=== PATIENT | male | born 1960 | race Two or more races ===

== ENCOUNTER 2017-09-05 08:38 | Emergency (ER) | payer MEDICARE, MEDICAID ==
[2017-09-05 08:46] VITALS: BP 108/71
--- NOTE | 2017-09-05 09:00 | EDM.PDOC ---
ED HPI GENERAL MEDICAL PROBLEM - General Chief Complaint: Respiratory Problem Stated Complaint: SHORTNESS OF BREATH Time Seen by Provider: 09/05/17 08:54 Source of Information: Reports: Patient History Limitations: Reports: No Limitations - History of Present Illness Onset: Gradual Onset Date: 09/02/17 Duration: Getting Worse Location: Reports: Chest, Other (Lungs with shortness of breath and cough.) Severity: Mild Improves with: Reports: None, Other (Patient has tried medication which has not worked.) Worsens with: Reports: None Context: Reports: Activity Associated Symptoms: Reports: Cough, cough w sputum, Fever/Chills, Shortness of Breath, Other (Muscle and body aches with joint pain.). 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 [No Known Home Meds] 04/08/16 [History] Past Medical History - Past Health History Medical/Surgical History: Denies Medical/Surgical History Social & Family History - Tobacco Use Smoking Status *Q: Current Every Day Smoker Years of Tobacco use: 30 Packs/Tins Daily: 1 - Recreational Drug Use Recreational Drug Use: No ED ROS GENERAL - Review of Systems Review Of Systems: ROS reveals no pertinent complaints other than HPI. Constitutional: Reports: Weakness. Denies: Fever, Chills HEENT: Reports: Sinus Problem. Denies: Ear Pain, Eye Pain, Throat Pain, Vision Change Respiratory: Reports: Shortness of Breath, Cough, Sputum Cardiovascular: Reports: No Symptoms Endocrine: Reports: No Symptoms GI/Abdominal: Reports: No Symptoms. Denies: Constipation, Diarrhea, Nausea, Vomiting : Reports: No Symptoms Musculoskeletal: Reports: Joint Pain, Muscle Pain. Denies: Joint Swelling Skin: Reports: No Symptoms. Denies: Rash Neurological: Denies: Confusion, Dizziness, Headache Psychiatric: Reports: No Symptoms ED EXAM, GENERAL - Physical Exam Exam: See Below Exam Limited By: No Limitations General Appearance: Alert, No Apparent Distress Ears: Normal External Exam, Normal Canal, Normal TMs Ear Exam: Bilateral Ear: Auricle Normal, Canal Normal, TM normal Nose: Nasal Drainage, Other (Erythema of bilateral nare.). No: Nasal Deformity , Nasal Swelling Throat/Mouth: Normal Inspection, Normal Oropharynx, Normal Voice, No Airway Compromise. No: Inflammation Head: Atraumatic, Normocephalic, Sinus Tenderness, Other (Tenderness with palpation over bilateral maxillary sinuses.) Neck: Non-Tender, Full Range of Motion, Lymphadenopathy (L), Lymphadenopathy (R) Respiratory/Chest: No Respiratory Distress, Normal Breath Sounds, No Accessory Muscle Use, Crackles. No: Rales (He does have some crackles in his left upper lung.), Rhonchi, Wheezing Cardiovascular: Normal Peripheral Pulses, Regular Rate, Rhythm, No Edema, No JVD , No Murmur Peripheral Pulses: 2+: Radial (L), Radial (R) GI/Abdominal: Normal Bowel Sounds, Soft, Non-Tender, No Organomegaly, No Distention Extremities: Normal Inspection, Normal Range of Motion, Non-Tender Neurological: Alert, Oriented, CN II-XII Intact, Normal Gait Psychiatric: Normal Affect, Normal Mood Skin Exam: Warm, Dry, Intact, No Rash Course - Vital Signs Last Recorded V/S: Last Vital Signs Temp 36.6 C 09/05/17 08:43 Pulse 106 H 09/05/17 08:43 Resp 18 09/05/17 08:43 BP 108/71 09/05/17 08:43 Pulse Ox 96 09/05/17 08:43 Departure - Departure Time of Disposition: 09:40 Disposition: Home, Self-Care 01 Condition: Good Clinical Impression: Acute bronchiolitis Qualifiers: Bronchiolitis organism: unspecified organism Qualified Code(s): J21.9 - Acute bronchiolitis, unspecified - Discharge Information Instructions: Shortness of Breath, [id number], Acute Bronchitis, [id number] Additional Instructions: Patient is being discharged home with Cefdinir 300 mg twice a day 10 days. He is also instructed to follow-up in the clinic if symptoms worsen or do not get better
[2017-09-05 09:35] LABS: CHLORIDE,CL 101 mmol/L (98-107); SODIUM,NA 136 mmol/L (136-145)
[2017-09-05] MEDS ORDERED: cefTRIAXone 1 GM Vial IM ONE (09:56)
== END 2017-09-05 10:10 | disposition home or self-care (01) ==
LOC: VM.ED 08:38
DX: J21.9 Acute bronchiolitis, unspecified (principal); F17.210 Nicotine dependence, cigarettes, uncomplicated
CPT/HCPCS: 36415; 71020; 80053; 85025; 96372; 99285; J0696; 99283-GF

== ENCOUNTER 2017-11-18 04:46 | Emergency (ER) | payer MEDICARE, MEDICAID ==
[2017-11-18 04:49] VITALS: BP 158/79
[2017-11-18] MEDS ORDERED: methylPREDNISolone Sodium Succinate 125 MG/2 ML SDV IM ONE (04:50)
[2017-11-18] MEDS ORDERED: Sodium Chloride 0.9% 10 ML Syringe FLUSH PRN (04:50)
[2017-11-18] MEDS ORDERED: Ketorolac 30 MG/ML SDV IVPUSH ONE (04:51)
[2017-11-18] MEDS ORDERED: methylPREDNISolone Sodium Succinate 125 MG/2 ML SDV IVPUSH ONE (05:21)
[2017-11-18 06:24] LABS: CHLORIDE,CL 103 mmol/L (98-107); SODIUM,NA 141 mmol/L (136-145)
[2017-11-18] MEDS ORDERED: Iopamidol 612 MG/ML 100 ML Bottle IVPUSH ONE (06:58)
--- NOTE | 2017-11-18 09:15 | EDM.PDOC ---
ED HPI GENERAL MEDICAL PROBLEM - General Chief Complaint: Chest Pain Stated Complaint: chest pain Time Seen by Provider: 11/18/17 04:50 Source of Information: Reports: Patient History Limitations: Reports: No Limitations - History of Present Illness INITIAL COMMENTS - FREE TEXT/NARRATIVE: Pt. presents to ER with chest wall pain. Pt. states that the discomfort started shortly before coming to the ER. Pt. states that he was treated for pneumonia at this facility in August with oral antibiotics. After obtaining his medical record from [place], pt. was found to have HIV. Pt. states that he has been diagnosed with HIV, but has not been on antiretroviral therapy since April. Pt. states that he has been experiencing arthralgias in his knees and hips as well as his low back. He states that his primary care provider is Dr. Papa Garcia. He denies any cough, and states that he has not been experiencing any fever or chills. He denies any weakness. Location: Reports: Chest Quality: Reports: Ache Severity: Moderate Worsens with: Reports: Breathing, Movement Middle Chest Pain Score (Numeric/FACES): 5 - Related Data Allergies Allergy/AdvReac Type Severity Reaction Status Date / Time No Known Allergies Allergy Verified 09/05/17 08:48 Home Meds: Home Meds . [No Known Home Meds] 04/08/16 [History] Past Medical History - Past Health History Medical/Surgical History: Denies Medical/Surgical History Immunologic History: Reports: HIV Social & Family History - Tobacco Use Smoking Status *Q: Current Every Day Smoker Years of Tobacco use: 30 Packs/Tins Daily: 1 - Recreational Drug Use Recreational Drug Use: No ED ROS GENERAL - Review of Systems Review Of Systems: See Below Constitutional: Reports: No Symptoms HEENT: Reports: No Symptoms Respiratory: Denies: Shortness of Breath, Wheezing, Cough, Sputum, Hemoptysis Cardiovascular: Reports: No Symptoms Endocrine: Reports: No Symptoms GI/Abdominal: Reports: No Symptoms : Reports: No Symptoms Musculoskeletal: Reports: Back Pain, Leg Pain, Joint Pain, Muscle Stiffness Skin: Reports: No Symptoms Neurological: Reports: No Symptoms Psychiatric: Reports: No Symptoms Hematologic/Lymphatic: Reports: No Symptoms Immunologic: Reports: Other (see HPI) ED EXAM, GENERAL - Physical Exam Exam: See Below Exam Limited By: No Limitations General Appearance: Alert, WD/WN, No Apparent Distress Eye Exam: Bilateral Eye: EOMI, Normal Fundi, Normal Inspection, PERRL Ears: Normal External Exam, Normal Canal, Normal TMs Nose: Normal Inspection, Normal Mucosa, No Blood Throat/Mouth: Normal Inspection, Normal Lips, Normal Teeth, Normal Gums, Normal Oropharynx, Normal Voice, No Airway Compromise Head: Atraumatic, Normocephalic Neck: Normal Inspection, Supple, Non-Tender, Full Range of Motion Respiratory/Chest: No Respiratory Distress, Lungs Clear, Normal Breath Sounds, No Accessory Muscle Use Cardiovascular: Normal Peripheral Pulses, Regular Rate, Rhythm, No Edema, No Gallop, No JVD, No Murmur, No Rub GI/Abdominal: Normal Bowel Sounds, Soft, Non-Tender, No Organomegaly, No Distention, No Abnormal Bruit, No Mass Back Exam: Normal Inspection, Full Range of Motion, NT Extremities: Normal Inspection, Normal Range of Motion, Non-Tender, Normal Capillary Refill, No Pedal Edema Neurological: Alert, Oriented, CN II-XII Intact, Normal Cognition, Normal Gait, Normal Reflexes, No Motor/Sensory Deficits Psychiatric: Normal Affect, Normal Mood Skin Exam: Warm, Dry, Intact, Normal Color, No Rash Lymphatic: No Adenopathy Course - Vital Signs Last Recorded V/S: Last Vital Signs Temp 36.3 C 11/18/17 04:47 Pulse 84 11/18/17 04:47 Resp 20 11/18/17 04:47 BP 158/79 H 11/18/17 04:47 Pulse Ox 96 11/18/17 04:47 - Orders/Labs/Meds Orders: Active Orders 24 hr Category Date Time Status Chest 2V [CR] Stat Exams 11/18/17 04:50 Taken Chest w Cont [CT] Stat Exams 11/18/17 06:38 Taken MISC TEST Stat Lab 11/18/17 05:35 Received QUANTIFERON TB GOLD [REF] Stat Lab 11/18/17 05:35 Received TOXOPLASMA GONDII IGG/IGM REFL [REF] Stat Lab 11/18/17 05:35 Received Sodium Chloride 0.9% [Saline Flush] Med 11/18/17 04:50 Active 10 ml FLUSH ASDIRECTED PRN Peripheral IV Insertion Adult [OM.PC] Routine Oth 11/18/17 04:50 Ordered Medication Orders Sodium Chloride (Saline Flush) 10 ml FLUSH ASDIRECTED PRN PRN Reason: Keep Vein Open Last Admin: 11/18/17 05:43 Dose: 10 ml Labs: Laboratory Tests 11/18/17 11/18/17 11/18/17 Range/Units 05:35 05:35 05:35 WBC 8.9 (4.0-10.0) x10^3/uL RBC 4.98 (4.5-6.0) x10^6/uL Hgb 15.2 (14.0-18.0) g/dL Hct 43.8 (40.0-52.0) % MCV 88.0 (78.0-93.0) fL MCH 30.5 (26.0-32.0) pg MCHC 34.7 (32.0-36.0) g/dL RDW Coeff of Darwin 12.9 (10.0-15.0) % Plt Count 180 (130-400) x10^3/uL Neut % (Auto) 71.1 (50.0-80.0) % Lymph % (Auto) 20.2 L (25.0-50.0) % [place] % (Auto) 7.3 (2.0-11.0) % Eos % (Auto) 1.3 (0.0-4.0) % Baso % (Auto) 0.1 L (0.2-1.2) % PT 9.9 (9.8-11.8) SEC INR 0.9 L (2.0-3.5) D-Dimer, Quantitative 0.21 (<=0.58) mg/LFEU Sodium 141 (136-145) mmol/L Potassium 3.4 L (3.5-5.1) mmol/L Chloride 103 (98-107) mmol/L Carbon Dioxide 28 (21-32) mmol/L BUN 14 (7-18) mg/dL Creatinine 1.0 (0.70-1.30) mg/dL Est Cr Clr Drug Dosing 64.46 mL/min Estimated GFR (MDRD) > 60 Glucose 94 (74-106) mg/dL Calcium 8.5 (8.5-10.1) mg/dL Corrected Calcium 8.58 (8.5-10.1) mg/dL Total Bilirubin 0.4 (0.2-1.0) mg/dL AST 21 (15-37) U/L ALT 33 (16-63) U/L Alkaline Phosphatase 107 (46-116) U/L Troponin I < 0.017 (<=0.056) ng/mL C-Reactive Protein < 0.2 (<=0.9) mg/dL Total Protein 7.4 (6.4-8.2) g/dL Albumin 3.9 (3.4-5.0) g/dL Globulin 3.5 Albumin/Globulin Ratio 1.11 Meds: Medications Generic Name Dose Route Start Last Admin Trade Name Freq PRN Reason Stop Dose Admin Sodium Chloride 10 ml 11/18/17 04:50 11/18/17 05:43 Saline Flush FLUSH 10 ml ASDIRECTED PRN Administration Keep Vein Open Discontinued Medications Generic Name Dose Route Start Last Admin Trade Name Freq PRN Reason Stop Dose Admin Iopamidol 100 ml 11/18/17 06:58 11/18/17 07:12 Isovue-300 (61%) IVPUSH 11/18/17 06:59 100 ml ONETIME ONE Administration Ketorolac Tromethamine 30 mg 11/18/17 04:51 11/18/17 05:46 Toradol IVPUSH 11/18/17 04:52 30 mg ONETIME ONE Administration Methylprednisolone Sodium Succinate 125 mg 11/18/17 04:50 11/18/17 05:28 Solu-Medrol IM 11/18/17 04:51 Not Given ONETIME ONE Methylprednisolone Sodium Succinate 125 mg 11/18/17 05:21 11/18/17 05:45 Solu-Medrol IVPUSH 11/18/17 05:22 125 mg ONETIME ONE Administration Departure - Departure Time of Disposition: 09:00 Disposition: Eloped 07 Clinical Impression: Mass of lung - Discharge Information Instructions: Nonspecific Chest Pain, [id number], Tuberculosis, [id number] , Toxoplasmosis Referrals: PCP,None [Primary Care Provider] - Forms: ED Department Discharge - My Orders Last 24 Hours: My Active Orders 11/18/17 04:50 Chest 2V [CR] Stat Sodium Chloride 0.9% [Saline Flush] 10 ml FLUSH ASDIRECTED PRN Peripheral IV Insertion Adult [OM.PC] Routine 11/18/17 05:35 MISC TEST Stat QUANTIFERON TB GOLD [REF] Stat TOXOPLASMA GONDII IGG/IGM REFL [REF] Stat 11/18/17 06:38 Chest w Cont [CT] Stat - Assessment/Plan Last 24 Hours: My Active Orders 11/18/17 04:50 Chest 2V [CR] Stat Sodium Chloride 0.9% [Saline Flush] 10 ml FLUSH ASDIRECTED PRN Peripheral IV Insertion Adult [OM.PC] Routine 11/18/17 05:35 MISC TEST Stat QUANTIFERON TB GOLD [REF] Stat TOXOPLASMA GONDII IGG/IGM REFL [REF] Stat 11/18/17 06:38 Chest w Cont [CT] Stat Assessment:: chest pain lung mass of unknown etiology, bacterial vs. fungal vs. metastatic. Plan: Discussed findings with pt. and his significant other. Infectious disease at [facility] was consulted. They asked that the pt. be quarantined and admitted/ transferred for further workup, including AFB, fungal cultures, etc. Pt. was told that he needed to remain in his room and wear a mask to minimize transmission, but became very upset, stating he would no longer remain here at our facility or to to [place] today for further workup. Pt. asked for a cup of coffee. When I returned to pt. room, he had eloped with his significant other and her daughter. Attempted to contact pt. via phone-unsuccessful.
== END 2017-11-18 09:05 | disposition left against medical advice (07) ==
LOC: VM.ED 04:46
DX: R91.8 Other nonspecific abnormal finding of lung field (principal); F17.210 Nicotine dependence, cigarettes, uncomplicated; B20 Human immunodeficiency virus [HIV] disease; Z87.01 Personal history of pneumonia (recurrent)
CPT/HCPCS: 71046; 71260; 80053; 84484; 85025; 85379; 85610; 86140; 86361; 86480; 86777; 86778; 93005; 96374; 96375; 99285; J1885; J2930; J7050; Q9967; 36415; 99284-GF

== ENCOUNTER 2021-07-24 16:04 | Emergency (ER) | payer MEDICAID, MEDICARE ==
[2021-07-24 16:15] VITALS: BP 118/69; PULSE 85
--- NOTE | 2021-07-24 16:46 | EDM.PDOC ---
ED HPI GENERAL MEDICAL PROBLEM - General Chief Complaint: General Stated Complaint: DEHYDRATION Time Seen by Provider: 07/24/21 16:20 Source of Information: Reports: Patient History Limitations: Reports: No Limitations - History of Present Illness INITIAL COMMENTS - FREE TEXT/NARRATIVE: Patient comes emergency department today with complaints of what he feels is dehydration. Since Wednesday when those work patient was working outside that was a somewhat warm day he was outside most of the day. When he got home he said he had a mild headache on the anterior aspect of his forehead. He has had no recent falls or trauma. No visual acuity changes. No paresthesias of his upper or lower extremities. He has had no chest pain shortness of breath or difficulty breathing. No cough or congestion. No fever no chills. No abdominal pain nausea or vomiting. No hematuria dysuria urinary frequency. No black or tarry stools. He has complained of some generalized body aches and pains. He has been drinking fluid quite heavily over the past few days. He does have a history of HIV although is not currently seeking or receiving treatment. Generalized Pain Score (Numeric/FACES): 3 - Related Data Allergies Allergy/AdvReac Type Severity Reaction Status Date / Time No Known Allergies Allergy Verified 07/24/21 16:17 Home Meds: Home Meds . [No Known Home Meds] 04/08/16 [History] Past Medical History - Past Health History Medical/Surgical History: Denies Medical/Surgical History Immunologic History: Reports: HIV Social & Family History - Tobacco Use Tobacco Use Status *Q: Current Every Day Tobacco User Years of Tobacco use: 30 Packs/Tins Daily: 1 - Recreational Drug Use Recreational Drug Use: No ED ROS GENERAL - Review of Systems Review Of Systems: Comprehensive ROS is negative, except as noted in HPI. ED EXAM, GENERAL - Physical Exam Exam: See Below Exam Limited By: No Limitations General Appearance: Alert, WD/WN, No Apparent Distress Eye Exam: Bilateral Eye: EOMI, PERRL Ears: Normal External Exam Nose: Normal Inspection Throat/Mouth: Normal Inspection Head: Atraumatic, Normocephalic Neck: Normal Inspection, Supple, Non-Tender, Full Range of Motion Respiratory/Chest: No Respiratory Distress, Lungs Clear, Normal Breath Sounds, No Accessory Muscle Use, Chest Non-Tender Cardiovascular: Normal Peripheral Pulses, Regular Rate, Rhythm GI/Abdominal: Normal Bowel Sounds, Soft, Non-Tender Back Exam: Normal Inspection, Full Range of Motion Extremities: Normal Inspection, Normal Range of Motion, Non-Tender, No Pedal Edema, Normal Capillary Refill Neurological: Alert, Oriented, CN II-XII Intact, Normal Cognition, Normal Gait, No Motor/Sensory Deficits Psychiatric: Normal Affect, Normal Mood Skin Exam: Warm, Dry, Intact, Normal Color, No Rash Lymphatic: No Adenopathy Course - Vital Signs Last Recorded V/S: Last Vital Signs Temp 99.7 F 07/24/21 16:10 Pulse 85 07/24/21 16:10 Resp 18 07/24/21 16:10 BP 118/69 07/24/21 16:10 Pulse Ox 98 07/24/21 16:10 - Orders/Labs/Meds Labs: Laboratory Tests 07/24/21 07/24/21 07/24/21 Range/Units 16:58 16:58 16:58 WBC 4.8 (4.0-10.0) x10^3/uL RBC 5.24 (4.5-6.0) x10^6/uL Hgb 16.1 (14.0-18.0) g/dL Hct 45.7 (40.0-52.0) % MCV 87.2 (78.0-93.0) fL MCH 30.7 (26.0-32.0) pg MCHC 35.2 (32.0-36.0) g/dL RDW Coeff of Darwin 12.3 (10.0-15.0) % Plt Count 147 (130-400) x10^3/uL Immature Gran % (Auto) 0.20 (0.00-0.43) % Neut % (Auto) 58.4 (50.0-80.0) % Lymph % (Auto) 30.3 (25.0-50.0) % [place] % (Auto) 10.7 (2.0-11.0) % Eos % (Auto) 0.2 (0.0-4.0) % Baso % (Auto) 0.2 (0.2-1.2) % Neut # (Auto) 2.8 (1.8-7.7) x10^3/uL Lymph # (Auto) 1.5 (1.0-4.8) x10^3/uL [place] # (Auto) 0.5 (0.0-0.8) x10^3/uL Eos # (Auto) 0.0 (0.0-0.5) x10^3/uL Baso # (Auto) 0.0 (0.0-0.2) x10^3/uL Immature Gran # (Auto) 0.01 (0.00-0.07) x10^3/uL Sodium 135 L (136-145) mmol/L Potassium 4.7 (3.5-5.1) mmol/L Chloride 100 (98-107) mmol/L Carbon Dioxide 29 (21-32) mmol/L Anion Gap 10.7 (5-15) mmol/L BUN 17 (7-18) mg/dL Creatinine 1.0 (0.70-1.30) mg/dL Est Cr Clr Drug Dosing TNP Estimated GFR (MDRD) > 60 Glucose 97 (70-99) mg/dL Lactic Acid 0.8 (0.4-2.0) mmol/L Calcium 8.8 (8.5-10.1) mg/dL Corrected Calcium 9.0 (8.5-10.1) mg/dL Magnesium 2.3 (1.8-2.4) mg/dL Total Bilirubin 0.6 (0.2-1.0) mg/dL AST 20 (15-37) U/L ALT 30 (16-63) U/L Alkaline Phosphatase 118 H (46-116) U/L Creatine Kinase 55 (39-308) U/L C-Reactive Protein < 0.2 (<=0.9) mg/dL Total Protein 7.7 (6.4-8.2) g/dL Albumin 3.8 (3.4-5.0) g/dL Globulin 3.9 Albumin/Globulin Ratio 0.97 Urine Color (YELLOW) Urine Appearance (CLEAR) Urine pH (5.0-8.0) Ur Specific [place] Urine Protein (NEGATIVE) mg/dL Urine Glucose (UA) (NEGATIVE) mg/dL Urine Ketones (NEGATIVE) mg/dL Urine Occult Blood (NEGATIVE) Urine Nitrite (NEGATIVE) Urine Bilirubin (NEGATIVE) Urine Urobilinogen (0.2) EU/dL Ur Leukocyte Esterase (NEGATIVE) Influenza Type A RNA (NEGATIVE) RSV RNA (INAAT) (NEGATIVE) Influenza Type B RNA (NEGATIVE) SARS-CoV-2 RNA (ABRAHAM) (NEGATIVE) 07/24/21 07/24/21 Range/Units 17:30 17:34 WBC (4.0-10.0) x10^3/uL RBC (4.5-6.0) x10^6/uL Hgb (14.0-18.0) g/dL Hct (40.0-52.0) % MCV (78.0-93.0) fL MCH (26.0-32.0) pg MCHC (32.0-36.0) g/dL RDW Coeff of Darwin (10.0-15.0) % Plt Count (130-400) x10^3/uL Immature Gran % (Auto) (0.00-0.43) % Neut % (Auto) (50.0-80.0) % Lymph % (Auto) (25.0-50.0) % [place] % (Auto) (2.0-11.0) % Eos % (Auto) (0.0-4.0) % Baso % (Auto) (0.2-1.2) % Neut # (Auto) (1.8-7.7) x10^3/uL Lymph # (Auto) (1.0-4.8) x10^3/uL [place] # (Auto) (0.0-0.8) x10^3/uL Eos # (Auto) (0.0-0.5) x10^3/uL Baso # (Auto) (0.0-0.2) x10^3/uL Immature Gran # (Auto) (0.00-0.07) x10^3/uL Sodium (136-145) mmol/L Potassium (3.5-5.1) mmol/L Chloride (98-107) mmol/L Carbon Dioxide (21-32) mmol/L Anion Gap (5-15) mmol/L BUN (7-18) mg/dL Creatinine (0.70-1.30) mg/dL Est Cr Clr Drug Dosing Estimated GFR (MDRD) Glucose (70-99) mg/dL Lactic Acid (0.4-2.0) mmol/L Calcium (8.5-10.1) mg/dL Corrected Calcium (8.5-10.1) mg/dL Magnesium (1.8-2.4) mg/dL Total Bilirubin (0.2-1.0) mg/dL AST (15-37) U/L ALT (16-63) U/L Alkaline Phosphatase (46-116) U/L Creatine Kinase (39-308) U/L C-Reactive Protein (<=0.9) mg/dL Total Protein (6.4-8.2) g/dL Albumin (3.4-5.0) g/dL Globulin Albumin/Globulin Ratio Urine Color Yellow (YELLOW) Urine Appearance Clear (CLEAR) Urine pH 5.5 (5.0-8.0) Ur Specific [place] 1.025 Urine Protein Negative (NEGATIVE) mg/dL Urine Glucose (UA) Negative (NEGATIVE) mg/dL Urine Ketones Negative (NEGATIVE) mg/dL Urine Occult Blood Negative (NEGATIVE) Urine Nitrite Negative (NEGATIVE) Urine Bilirubin Negative (NEGATIVE) Urine Urobilinogen 1.0 (0.2) EU/dL Ur Leukocyte Esterase Negative (NEGATIVE) Influenza Type A RNA Negative (NEGATIVE) RSV RNA (INAAT) Negative (NEGATIVE) Influenza Type B RNA Negative (NEGATIVE) SARS-CoV-2 RNA (ABRAHAM) Negative (NEGATIVE) - Re-Assessments/Exams Free Text/Narrative Re-Assessment/Exam: 07/24/21 18:33 Patient's laboratory evaluation is really unremarkable. CBC is normal. His CMP has a sodium of 135. His lactic acid is normal at 0.8. C-reactive protein is less than 0.2. CPK is 55 normal. Urinalysis is normal. Covid is negative. I do not see any signs of acute infectious process or dehydration at this time. He could have a little bit of heat exhaustion but he is doing a good job with hydration. Continue to rest. Lots of fluids especially electrolyte containing fluids. Stay out of the heat. Till symptoms have resolved. Tylenol as needed for discomfort. Recheck if any concerns. Discharge instructions as below are explained to the patient and his family they are comfortable with this plan and their questions were answered. Departure - Departure Time of Disposition: 18:29 Disposition: Home, Self-Care 01 Clinical Impression: Heat exposure Qualifiers: Encounter type: initial encounter Qualified Code(s): T67.9XXA - Effect of heat and light, unspecified, initial encounter - Discharge Information Instructions: Heat Exhaustion Referrals: Nell Ramirez CONVEYOR [employer]T OPERATOR [Primary Care Provider] - Forms: ED Department Discharge Additional Instructions: Continue to drink plenty of fluids especially electrolyte containing fluids like gatorade and or powerade. Stay cool and out of the heat until symptom free. Tylenol as needed for aches and pain. Return to the ED if new or worsening symptoms. Follow up with PCP in the next week if not improving. Sepsis Event Note (ED) - Focused Exam Vital Signs: Vital Signs Temp Pulse Resp BP Pulse Ox 07/24/21 16:10 99.7 F 85 18 118/69 98
[2021-07-24 17:28] LABS: ANION GAP 10.7 mmol/L (5-15); CHLORIDE,CL 100 mmol/L (98-107); SODIUM,NA 135 mmol/L (136-145)
[2021-07-24 18:26] LABS: CORONAVIRUS COVID-19 NAA NEGATIVE (NEGATIVE); RESPIRATORY SYNCYTIAL VIR NAA NEGATIVE (NEGATIVE)
== END 2021-07-24 18:35 | disposition home or self-care (01) ==
LOC: VM.ED 16:04
DX: T67.9XXA Effect of heat and light, unspecified, initial encounter (principal); Z72.0 Tobacco use; Z21 Asymptomatic human immunodeficiency virus [HIV] infection status; Z20.822 Contact with and (suspected) exposure to COVID-19
CPT/HCPCS: 0241U; 36415; 80053; 81003; 82550; 83605; 83735; 85025; 86140; 99283; 99284

== ENCOUNTER 2021-09-19 23:19 | Emergency (ER) | payer MEDICAID ==
[2021-09-19 23:35] VITALS: BP 112/70; PULSE 95
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
== END 2021-09-19 23:35 ==
LOC: VM.ED 23:19
DX: R10.9 Unspecified abdominal pain (principal)
CPT/HCPCS: 99283; 99284

== ENCOUNTER 2023-05-18 21:05 | Emergency (ER) | payer MEDICAID ==
[2023-05-18] MEDS ORDERED: Sodium Chloride 0.9% 10 ML Syringe FLUSH PRN (21:25)
[2023-05-18 21:42] LABS: EOSINOPHILS ABSOLUTE AUTO 0.1 x10^3/uL (0.0-0.5); EOSINOPHILS PERCENT AUTO 2.4 % (0.0-4.0); HEMATOCRIT 43.4 % (40.0-52.0); HEMOGLOBIN 15.3 g/dL (14.0-18.0); IMMATURE GRAN ABSOLUTE AUTO 0.02 x10^3/uL (0.00-0.07); LYMPHOCYTES PERCENT AUTO 23.2 % (25.0-50.0); MEAN CORPUSCULAR HEMOGLOBIN 30.6 pg (26.0-32.0); MEAN CORPUSCULAR HGB CONC 35.3 g/dL (32.0-36.0); MEAN CORPUSCULAR VOLUME 86.8 fL (78.0-93.0); MONOCYTES ABSOLUTE AUTO 0.4 x10^3/uL (0.0-0.8); MONOCYTES PERCENT AUTO 8.6 % (2.0-11.0); NEUTROPHILS ABSOLUTE AUTO 2.7 x10^3/uL (1.8-7.7); NEUTROPHILS PERCENT AUTO 65.3 % (50.0-80.0); PLATELET COUNT,PLT 204 x10^3/uL (130-400); WHITE BLOOD CELL COUNT,WBC 4.2 x10^3/uL (4.0-10.0)
[2023-05-18 22:02] LABS: INR 0.9 (2.0-3.5); PROTHROMBIN TIME 10.2 SEC (9.5-12.2); PTT,PARTIAL THROMBOPLSTIN TIME 25.9 SEC (23.6-33.6)
[2023-05-18 22:03] LABS: A/G RATIO 1.05; ALANINE AMINOTRANSFERASE,ALT 35 U/L (16-63); ALBUMIN 3.9 g/dL (3.4-5.0); ALKALINE PHOSPHATASE 144 U/L (46-116); ASPARTATE AMNIOTRANSFERASE,AST 20 U/L (15-37); BILIRUBIN TOTAL 0.4 mg/dL (0.2-1.0); BLOOD UREA NITROGEN,BUN 10 mg/dL (7-18); C-REACTIVE PROTEIN 0.13 mg/dL (<=0.30); CARBON DIOXIDE,CO2 25 mmol/L (21-32); CHLORIDE,CL 105 mmol/L (98-107); CREATININE 1.1 mg/dL (0.70-1.30); ETHANOL BLOOD MEDICAL 5 mg/dL (0-3); GLUCOSE RANDOM 79 mg/dL (70-99); PROTEIN TOTAL,TP 7.6 g/dL (6.4-8.2); SODIUM,NA 141 mmol/L (136-145)
[2023-05-18 22:04] LABS: ESTIMATED GFR 76 mL/min (>=60)
[2023-05-18 22:11] LABS: APPEARANCE,URINE CLEAR (CLEAR); BILIRUBIN,URINE NEGATIVE (NEGATIVE); COLOR,URINE YELLOW (YELLOW); GLUCOSE,URINE NEGATIVE (NEGATIVE); KETONES,URINE NEGATIVE (NEGATIVE); LEUKOCYTE ESTERASE,URINE NEGATIVE (NEGATIVE); NITRITE,URINE NEGATIVE (NEGATIVE); OCCULT BLOOD,URINE NEGATIVE (NEGATIVE); PROTEIN,URINE NEGATIVE (NEGATIVE); UROBILINOGEN,URINE 0.2 EU/dL (0.2)
[2023-05-18 22:14] LABS: AMPHETAMINES SCREEN, URINE POSITIVE (NEGATIVE); BARBITURATE SCREEN,URINE NEGATIVE (NEGATIVE); BENZODIAZEPINES SCREEN,URINE POSITIVE (NEGATIVE); BUPRENORPHINE SCREEN,URINE NEGATIVE (NEGATIVE); COCAINE METABOLITES,URINE NEGATIVE (NEGATIVE); METHADONE SCREEN, URINE NEGATIVE (NEGATIVE); METHAMPHETAMINE SCREEN, URINE POSITIVE (NEGATIVE)
[2023-05-18 22:15] LABS: OXYCODONE SCREEN,URINE NEGATIVE (NEGATIVE); PCP SCREEN,URINE NEGATIVE (NEGATIVE); THC SCREEN,URINE 50 NG/ML NEGATIVE (NEGATIVE)
[2023-05-18] MEDS: Iopamidol 755 Mg/ML 100 ML Bottle IVPUSH ONE (23:29)
[2023-05-19] MEDS: Aspirin 81 MG Tab.Chew PO ONE (00:54)
[2023-05-19] MEDS: Clopidogrel 75 MG Tab PO ONE (00:54)
== END 2023-05-19 01:03 | disposition home or self-care (01) ==
LOC: VM.ED 21:05
DX: G45.9 Transient cerebral ischemic attack, unspecified (principal); I77.89 Other specified disorders of arteries and arterioles; Z21 Asymptomatic human immunodeficiency virus [HIV] infection status
CPT/HCPCS: 36415; 70450; 70496; 80053; 80305-QW; 80307; 81003; 82947; 83735; 84484; 85025; 85610; 85730; 86140; 93005; 93010; 99285; A9270-GY; Q9967

== ENCOUNTER 2023-08-20 19:59 | Emergency (ER) | payer MEDICAID ==
[2023-08-20] MEDS ORDERED: fentaNYL 50 MCG/ML SDV IVPUSH ONE (20:02)
[2023-08-20] MEDS ORDERED: Labetalol 20 MG/4 ML Syringe IVPUSH ONE ×2 (20:03→20:29)
[2023-08-20 20:18] LABS: EOSINOPHILS ABSOLUTE AUTO 0.1 x10^3/uL (0.0-0.5); EOSINOPHILS PERCENT AUTO 1.1 % (0.0-4.0); HEMATOCRIT 50.3 % (40.0-52.0); HEMOGLOBIN 17.4 g/dL (14.0-18.0); IMMATURE GRAN ABSOLUTE AUTO 0.01 x10^3/uL (0.00-0.07); LYMPHOCYTES ABSOLUTE AUTO 1.5 x10^3/uL (1.0-4.8); LYMPHOCYTES PERCENT AUTO 20.7 % (25.0-50.0); MEAN CORPUSCULAR HEMOGLOBIN 32.3 pg (26.0-32.0); MEAN CORPUSCULAR HGB CONC 34.6 g/dL (32.0-36.0); MEAN CORPUSCULAR VOLUME 93.5 fL (78.0-93.0); MONOCYTES ABSOLUTE AUTO 0.5 x10^3/uL (0.0-0.8); MONOCYTES PERCENT AUTO 6.6 % (2.0-11.0); NEUTROPHILS ABSOLUTE AUTO 5.1 x10^3/uL (1.8-7.7); NEUTROPHILS PERCENT AUTO 71.5 % (50.0-80.0); PLATELET COUNT,PLT 195 x10^3/uL (130-400); RED BLOOD CELL COUNT 5.38 x10^6/uL (4.5-6.0); WHITE BLOOD CELL COUNT,WBC 7.1 x10^3/uL (4.0-10.0)
[2023-08-20] MEDS ORDERED: Iopamidol 755 Mg/ML 100 ML Bottle IVPUSH ONE (20:34)
[2023-08-20 20:47] LABS: A/G RATIO 1.03; ALANINE AMINOTRANSFERASE,ALT 27 U/L (16-63); ALBUMIN 3.4 g/dL (3.4-5.0); ALKALINE PHOSPHATASE 120 U/L (46-116); ASPARTATE AMNIOTRANSFERASE,AST 18 U/L (15-37); BILIRUBIN TOTAL 0.3 mg/dL (0.2-1.0); BLOOD UREA NITROGEN,BUN 16 mg/dL (7-18); C-REACTIVE PROTEIN 0.12 mg/dL (<=0.30); CALCIUM 9.2 mg/dL (8.5-10.1); CARBON DIOXIDE,CO2 34 mmol/L (21-32); CHLORIDE,CL 105 mmol/L (98-107); CREATININE 1.1 mg/dL (0.70-1.30); GLUCOSE RANDOM 94 mg/dL (70-99); MAGNESIUM 2.1 mg/dL (1.8-2.4); POTASSIUM,K 4.3 mmol/L (3.5-5.1); PROTEIN TOTAL,TP 6.7 g/dL (6.4-8.2); SODIUM,NA 144 mmol/L (136-145); TSH ULTRASENSITIVE 0.927 uIU/mL (0.358-3.74)
[2023-08-20 20:56] LABS: ANION GAP 9.3 mmol/L (5-15); ESTIMATED GFR 76 mL/min (>=60)
[2023-08-20 21:54] LABS: ETHANOL BLOOD MEDICAL <= 3 mg/dL (0-3)
[2023-08-20] MEDS ORDERED: Lisinopril 10 MG Tab PO ONE (22:16)
[2023-08-20] MEDS ORDERED: Clopidogrel 75 MG Tab PO ONE (22:24)
== END 2023-08-20 22:40 ==
LOC: VM.ED 19:59
DX: I16.9 Hypertensive crisis, unspecified (principal)
CPT/HCPCS: 36415; 70450; 70496; 80053; 80307; 83735; 84443; 84484; 85025; 86140; 99285; Q9967

== ENCOUNTER 2023-10-31 10:25 | Emergency (ER) | payer MEDICAID ==
[2023-10-31] MEDS ORDERED: Sodium Chloride 0.9% 10 ML Syringe FLUSH PRN (10:26)
[2023-10-31 10:35] LABS: EOSINOPHILS ABSOLUTE AUTO 0.1 x10^3/uL (0.0-0.5); EOSINOPHILS PERCENT AUTO 1.5 % (0.0-4.0); HEMATOCRIT 47.5 % (40.0-52.0); HEMOGLOBIN 16.5 g/dL (14.0-18.0); IMMATURE GRAN ABSOLUTE AUTO 0.07 x10^3/uL (0.00-0.07); LYMPHOCYTES PERCENT AUTO 23.4 % (25.0-50.0); MEAN CORPUSCULAR HEMOGLOBIN 32.5 pg (26.0-32.0); MEAN CORPUSCULAR HGB CONC 34.7 g/dL (32.0-36.0); MEAN CORPUSCULAR VOLUME 93.7 fL (78.0-93.0); MONOCYTES ABSOLUTE AUTO 0.8 x10^3/uL (0.0-0.8); MONOCYTES PERCENT AUTO 9.3 % (2.0-11.0); NEUTROPHILS ABSOLUTE AUTO 5.5 x10^3/uL (1.8-7.7); PLATELET COUNT,PLT 270 x10^3/uL (130-400); RED BLOOD CELL COUNT 5.07 x10^6/uL (4.5-6.0); WHITE BLOOD CELL COUNT,WBC 8.4 x10^3/uL (4.0-10.0)
[2023-10-31 10:48] LABS: PROTHROMBIN TIME 10.5 SEC (9.5-12.2)
[2023-10-31 11:03] LABS: A/G RATIO 1.08; ALANINE AMINOTRANSFERASE,ALT 34 U/L (16-63); ALBUMIN 4.1 g/dL (3.4-5.0); ALKALINE PHOSPHATASE 131 U/L (46-116); ASPARTATE AMNIOTRANSFERASE,AST 19 U/L (15-37); BILIRUBIN TOTAL 0.8 mg/dL (0.2-1.0); BLOOD UREA NITROGEN,BUN 25 mg/dL (7-18); C-REACTIVE PROTEIN 1.69 mg/dL (<=0.50); CALCIUM 9.9 mg/dL (8.5-10.1); CARBON DIOXIDE,CO2 32 mmol/L (21-32); CHLORIDE,CL 103 mmol/L (98-107); CREATININE 1.3 mg/dL (0.70-1.30); GLUCOSE RANDOM 103 mg/dL (70-99); MAGNESIUM 2.3 mg/dL (1.8-2.4); POTASSIUM,K 4.1 mmol/L (3.5-5.1); PROTEIN TOTAL,TP 7.9 g/dL (6.4-8.2); SODIUM,NA 144 mmol/L (136-145); TSH ULTRASENSITIVE 2.327 uIU/mL (0.358-3.74)
[2023-10-31 11:05] LABS: ANION GAP 13.1 mmol/L (5-15); ESTIMATED GFR 63 mL/min (>=60); ETHANOL BLOOD MEDICAL < 3 mg/dL (0-3)
[2023-10-31 12:10] LABS: AMPHETAMINES SCREEN, URINE POSITIVE (NEGATIVE); BARBITURATE SCREEN,URINE NEGATIVE (NEGATIVE); BENZODIAZEPINES SCREEN,URINE POSITIVE (NEGATIVE); BUPRENORPHINE SCREEN,URINE NEGATIVE (NEGATIVE); COCAINE METABOLITES,URINE NEGATIVE (NEGATIVE); METHADONE SCREEN, URINE NEGATIVE (NEGATIVE); METHAMPHETAMINE SCREEN, URINE POSITIVE (NEGATIVE); OXYCODONE SCREEN,URINE NEGATIVE (NEGATIVE); PCP SCREEN,URINE NEGATIVE (NEGATIVE); THC SCREEN,URINE 50 NG/ML NEGATIVE (NEGATIVE)
[2023-10-31 21:33] VITALS: BP 144/94; PULSE 98
== END 2023-10-31 12:34 | disposition home or self-care (01) ==
LOC: VM.ED 10:25
DX: T40.601A Poisoning by unspecified narcotics, accidental (unintentional), initial encounter (principal); R41.0 Disorientation, unspecified; F17.210 Nicotine dependence, cigarettes, uncomplicated; B20 Human immunodeficiency virus [HIV] disease; Z79.899 Other long term (current) drug therapy
CPT/HCPCS: 36415; 70450; 71045; 80053; 80305-QW; 80307; 82140; 83605; 83735; 84443; 84484; 85025; 85610; 85730; 86140; 93005; 99284

== ENCOUNTER 2023-12-26 16:01 | Emergency (ER) | payer MEDICAID, MEDICARE ==
[2023-12-26 16:34] VITALS: BP 134/84; PULSE 81
== END 2023-12-26 17:16 | disposition home or self-care (01) ==
LOC: VM.ED 16:01
DX: S20.212A Contusion of left front wall of thorax, initial encounter (principal); S50.812A Abrasion of left forearm, initial encounter; S50.811A Abrasion of right forearm, initial encounter; S60.512A Abrasion of left hand, initial encounter; S60.511A Abrasion of right hand, initial encounter; Z21 Asymptomatic human immunodeficiency virus [HIV] infection status; Y04.0XXA Assault by unarmed brawl or fight, initial encounter
CPT/HCPCS: 70450; 71045; 99284; 99285

== ENCOUNTER 2024-05-27 15:12 | Emergency (ER) | payer MEDICARE, MEDICAID ==
[2024-05-27] MEDS: Take Home: Sulfamethoxazole/Trimethoprim 800-160 MG Tab, 6 Tab Pack PO ONE (15:46)
[2024-05-27 16:21] VITALS: BP 167/88; PULSE 98
== END 2024-05-27 15:48 | disposition home or self-care (01) ==
LOC: VM.ED 15:12
DX: L03.114 Cellulitis of left upper limb (principal); Z79.899 Other long term (current) drug therapy
CPT/HCPCS: 99283; A9270-GY

== ENCOUNTER 2025-01-30 12:03 | Emergency (ER) | payer MEDICAID ==
[2025-01-30] MEDS ORDERED: Sodium Chloride 0.9% 10 ML Syringe FLUSH PRN (12:06)
[2025-01-30] MEDS: Albuterol/Ipratropium 3.0-0.5 MG/3 ML Neb Soln NEB ONE (12:30)
[2025-01-30] MEDS: Aspirin 81 MG Tab.Chew PO ONE (12:30)
[2025-01-30 12:40] LABS: BASOPHILS PERCENT AUTO 0.1 % (0.2-1.2); EOSINOPHILS ABSOLUTE AUTO 0.1 x10^3/uL (0.0-0.5); EOSINOPHILS PERCENT AUTO 1.1 % (0.0-4.0); HEMATOCRIT 45.7 % (40.0-52.0); IMMATURE GRAN ABSOLUTE AUTO 0.06 x10^3/uL (0.00-0.07); LYMPHOCYTES ABSOLUTE AUTO 1.6 x10^3/uL (1.0-4.8); MEAN CORPUSCULAR HEMOGLOBIN 33.4 pg (26.0-32.0); MEAN CORPUSCULAR VOLUME 95.4 fL (78.0-93.0); MONOCYTES ABSOLUTE AUTO 0.7 x10^3/uL (0.0-0.8); MONOCYTES PERCENT AUTO 7.7 % (2.0-11.0); NEUTROPHILS PERCENT AUTO 73.5 % (50.0-80.0); PLATELET COUNT,PLT 229 x10^3/uL (130-400); RED BLOOD CELL COUNT 4.79 x10^6/uL (4.5-6.0); WHITE BLOOD CELL COUNT,WBC 9.5 x10^3/uL (4.0-10.0)
[2025-01-30 12:55] VITALS: PULSE 96
[2025-01-30 13:03] LABS: ALBUMIN 3.6 g/dL (3.4-5.0); BILIRUBIN TOTAL 0.6 mg/dL (0.2-1.0); C-REACTIVE PROTEIN 1.18 mg/dL (<=0.50); EST CRCL DRUG DOSING (CG) 59.15 mL/min; POTASSIUM,K 3.7 mmol/L (3.5-5.1); PROTEIN TOTAL,TP 7.2 g/dL (6.4-8.2)
[2025-01-30 13:04] LABS: ANION GAP 7.7 mmol/L (5-15)
[2025-01-30] MEDS ORDERED: Heparin Sodium/0.45% NaCl 25,000 UNITS/250 ML BAG IV SCH (13:15)
[2025-01-30] MEDS: Heparin Sodium 5,000 Units/ML Vial IVPUSH ONE (13:35)
[2025-01-30 13:37] LABS: INR 0.9 (0.9-1.1); PROTHROMBIN TIME 9.8 SEC (9.6-12.0); PTT,PARTIAL THROMBOPLSTIN TIME 25.4 SEC (23.5-33.2)
[2025-01-30] MEDS: Heparin Sodium/0.45% NaCl 25,000 UNITS/250 ML BAG IV SCH (13:38)
[2025-01-30] MEDS: Nitroglycerin/D5W 25 MG/250 ML BOTTLE IV SCH (13:40)
[2025-01-30 15:05] VITALS: BP 177/84
== END 2025-01-30 14:45 | disposition short-term general hospital (02) ==
LOC: VM.ED 12:03
DX: I21.4 Non-ST elevation (NSTEMI) myocardial infarction (principal); Z79.899 Other long term (current) drug therapy
CPT/HCPCS: 71046; 80053; 82550; 84484; 85025; 85610; 85730; 86140; 93005; 94640; 96365; 96368; 99285; A9270; J1644; J2305; J7620

== ENCOUNTER 2025-08-13 10:44 | Emergency (ER) | payer MEDICAID, MEDICARE, OTHER ==
[2025-08-13 11:06] LABS: BASOPHILS ABSOLUTE AUTO 0.0 x10^3/uL (0.0-0.2); BASOPHILS PERCENT AUTO 0.1 % (0.2-1.2); EOSINOPHILS ABSOLUTE AUTO 0.2 x10^3/uL (0.0-0.5); EOSINOPHILS PERCENT AUTO 2.3 % (0.0-4.0); IMMATURE GRAN ABSOLUTE AUTO 0.01 x10^3/uL (0.00-0.07); IMMATURE GRAN PERCENT AUTO 0.10 % (0.00-0.43); LYMPHOCYTES ABSOLUTE AUTO 0.9 x10^3/uL (1.0-4.8); LYMPHOCYTES PERCENT AUTO 11.8 % (25.0-50.0); MONOCYTES ABSOLUTE AUTO 0.5 x10^3/uL (0.0-0.8); MONOCYTES PERCENT AUTO 7.1 % (2.0-11.0); NEUTROPHILS ABSOLUTE AUTO 5.9 x10^3/uL (1.8-7.7); NEUTROPHILS PERCENT AUTO 78.6 % (50.0-80.0); PLATELET COUNT,PLT 190 x10^3/uL (130-400); RED BLOOD CELL COUNT 4.59 x10^6/uL (4.5-6.0); WHITE BLOOD CELL COUNT,WBC 7.5 x10^3/uL (4.0-10.0)
[2025-08-13 11:23] LABS: A/G RATIO 1.09; ALANINE AMINOTRANSFERASE,ALT 28 U/L (16-63); ASPARTATE AMNIOTRANSFERASE,AST 16 U/L (15-37); BILIRUBIN TOTAL 0.5 mg/dL (0.2-1.0); BLOOD UREA NITROGEN,BUN 10 mg/dL (7-18); CARBON DIOXIDE,CO2 29 mmol/L (21-32); CHLORIDE,CL 105 mmol/L (98-107); CREATININE 1.1 mg/dL (0.70-1.30); ESTIMATED GFR 75 mL/min (>=60); GLUCOSE RANDOM 105 mg/dL (70-99); POTASSIUM,K 3.2 mmol/L (3.5-5.1); PROTEIN TOTAL,TP 7.1 g/dL (6.4-8.2); SODIUM,NA 142 mmol/L (136-145)
[2025-08-13 12:45] VITALS: BP 167/77; PULSE 93
== END 2025-08-13 12:43 | disposition home or self-care (01) ==
LOC: VM.ED 10:44
DX: J45.901 Unspecified asthma with (acute) exacerbation (principal); I10 Essential (primary) hypertension; Z79.899 Other long term (current) drug therapy
CPT/HCPCS: 71046; 80053; 84484; 85025; 93005; 93010; 94640; 99284; 99285; A9270-GY